=== PATIENT | female | born 1985 | race Caucasian/White ===

== ENCOUNTER 2016-06-13 23:09 | Emergency (ER) | payer OTHER ==
[~2016-06-13] VITALS: Ht 162.6 cm; Wt 65.8 kg
[2016-06-14 01:36] VITALS: BP 122/77
== END 2016-06-14 01:36 | disposition home or self-care (01) ==
LOC: ED 23:09
DX: R07.89 Other chest pain (principal); F41.9 Anxiety disorder, unspecified
CPT/HCPCS: J1885; Q0092

== ENCOUNTER 2017-04-10 00:02 | Emergency (ER) | payer OTHER ==
[2017-04-10 04:03] LABS: BASOPHIL % 0.4 % (0-2); PLATELET COUNT 285 x10^3mcL (130-400); RED CELL DISTRIBUTION WIDTH 13.1 % (11.5-14.5)
[2017-04-10 04:55] LABS: SODIUM SERUM 138 mmol/L (136-145)
[2017-04-10 04:56] LABS: CARBON DIOXIDE 26 mmol/L (21-32); CHLORIDE SERUM 104 mmol/L (98-107); POTASSIUM SERUM 3.7 mmol/L (3.5-5.1)
[2017-04-10 04:58] LABS: CALCIUM 9.3 mg/dL (8.5-10.1); CREATININE SERUM 0.6 mg/dL (0.6-1.0); GFR1 > 60 mL/min
[2017-04-10 05:11] LABS: GLUCOSE SERUM 98 mg/dL (74-106)
[2017-04-10 06:23] VITALS: BP 105/75
== END 2017-04-10 06:23 | disposition home or self-care (01) ==
LOC: ED 00:02
PROVIDERS: Emergency Medicine
DX: M54.5 Low back pain (principal); R10.9 Unspecified abdominal pain
CPT/HCPCS: 36415; J1885

== ENCOUNTER 2017-07-02 11:05 | Emergency (ER) | payer OTHER ==
[~2017-07-02] VITALS: Ht 160 cm; Wt 59.9 kg
[2017-07-02 11:39] LABS: BASOPHIL % 0.6 % (0-2); PLATELET COUNT 299 x10^3mcL (130-400); RED CELL DISTRIBUTION WIDTH 12.8 % (11.5-14.5)
[2017-07-02 12:00] LABS: CALCIUM 8.9 mg/dL (8.5-10.1); CARBON DIOXIDE 28.4 mmol/L (21-32); CHLORIDE SERUM 106 mmol/L (98-107); CREATININE SERUM 0.7 mg/dL (0.6-1.0); GFR1 > 60 mL/min; GLUCOSE SERUM 96 mg/dL (74-106); POTASSIUM SERUM 3.6 mmol/L (3.5-5.1); SODIUM SERUM 140 mmol/L (136-145)
[2017-07-02 12:05] LABS: ALBUMIN 4.1 g/dL (3.4-5.0); ALKALINE PHOSPHATASE 53 U/L (46-116); ALT/SGPT 15 U/L (14-59); AST/SGOT 15 U/L (15-37); BILIRUBIN TOTAL 0.5 mg/dL (0.20-1.00); TOTAL PROTEIN, SERUM 7.5 g/dL (6.4-8.2)
[2017-07-02 12:11] VITALS: BP 131/89
== END 2017-07-02 12:56 | disposition home or self-care (01) ==
LOC: ED 11:05
PROVIDERS: Emergency Medicine
DX: R07.89 Other chest pain (principal); R06.02 Shortness of breath
CPT/HCPCS: 36415; J1885; Q0092

== ENCOUNTER 2017-08-08 17:35 | Emergency (ER) | payer OTHER ==
[~2017-08-08] VITALS: Ht 160 cm; Wt 59.9 kg
[2017-08-08 17:39] VITALS: Ht 160 cm; Wt 59.9 kg
[2017-08-08 19:14] VITALS: BP 118/68
== END 2017-08-08 19:14 | disposition home or self-care (01) ==
LOC: ED 17:35
DX: N83.201 Unspecified ovarian cyst, right side (principal); N39.0 Urinary tract infection, site not specified; Z88.5 Allergy status to narcotic agent
CPT/HCPCS: J1885

== ENCOUNTER 2018-02-16 10:30 | Emergency (ER) | payer OTHER ==
[~2018-02-16] VITALS: Ht 160 cm; Wt 59.0 kg
[2018-02-16 10:31] VITALS: Ht 160 cm; Wt 59.0 kg
[2018-02-16 11:03] LABS: PLATELET COUNT 282 x10^3mcL (130-400); RED CELL DISTRIBUTION WIDTH 13.4 % (11.5-14.5)
[2018-02-16 11:05] LABS: BASOPHIL % 0 % (0-2)
[2018-02-16 11:14] LABS: CARBON DIOXIDE 22.9 mmol/L (21-32); CHLORIDE SERUM 104 mmol/L (98-107); CREATININE SERUM 0.7 mg/dL (0.6-1.0); GFR1 > 60 mL/min; GLUCOSE SERUM 115 mg/dL (74-106); POTASSIUM SERUM 3.4 mmol/L (3.5-5.1); SODIUM SERUM 138 mmol/L (136-145)
[2018-02-16 11:18] LABS: ALKALINE PHOSPHATASE 58 U/L (46-116); ALT/SGPT 27 U/L (14-59); AST/SGOT 14 U/L (15-37); BILIRUBIN TOTAL 0.95 mg/dL (0.20-1.00); LIPASE 87 IU/L (73-393); TOTAL PROTEIN, SERUM 7.7 g/dL (6.4-8.2)
[2018-02-16 12:10] VITALS: BP 99/66
== END 2018-02-16 12:08 | disposition home or self-care (01) ==
LOC: ED 10:30
PROVIDERS: Emergency Medicine
DX: A08.4 Viral intestinal infection, unspecified (principal); G43.909 Migraine, unspecified, not intractable, without status migrainosus; Z88.5 Allergy status to narcotic agent; Z98.890 Other specified postprocedural states
CPT/HCPCS: 36415; J1885; Q0162

== ENCOUNTER 2018-09-11 20:00 | Emergency (ER) | payer OTHER ==
[~2018-09-11] VITALS: Ht 160 cm; Wt 65.3 kg
[2018-09-11 20:15] VITALS: Ht 160 cm; Wt 65.3 kg
[2018-09-11 23:12] VITALS: BP 108/72
== END 2018-09-11 23:12 | disposition home or self-care (01) ==
LOC: ED 20:00
DX: O23.41 Unspecified infection of urinary tract in pregnancy, first trimester (principal); R10.31 Right lower quadrant pain; R42 Dizziness and giddiness; G43.909 Migraine, unspecified, not intractable, without status migrainosus; Z3A.01 Less than 8 weeks gestation of pregnancy; Z88.5 Allergy status to narcotic agent
CPT/HCPCS: 36415

== ENCOUNTER 2018-12-03 11:52 | Emergency (ER) | payer OTHER ==
[~2018-12-03] VITALS: Ht 160 cm; Wt 66.7 kg
[2018-12-03 12:20] VITALS: BP 115/80; Ht 160 cm; Wt 66.7 kg
== END 2018-12-03 14:51 | disposition home or self-care (01) ==
LOC: ED 11:52
DX: O26.892 Other specified pregnancy related conditions, second trimester (principal); R06.02 Shortness of breath; G43.909 Migraine, unspecified, not intractable, without status migrainosus; Z3A.19 19 weeks gestation of pregnancy; Z88.5 Allergy status to narcotic agent; Z98.890 Other specified postprocedural states

== ENCOUNTER 2019-03-20 20:26 | Emergency (ER) | payer OTHER ==
[~2019-03-20] VITALS: Ht 160 cm; Wt 76.4 kg
[2019-03-20 20:36] VITALS: Ht 160 cm; Wt 76.4 kg
[2019-03-20 22:46] LABS: microscopic required? NO
[2019-03-20 23:08] LABS: urine erythrocyte NEGATIVE (NEGATIVE)
[2019-03-21 00:14] VITALS: BP 109/74
== END 2019-03-21 00:14 | disposition short-term general hospital (02) ==
LOC: ED 20:26
PROVIDERS: Emergency Medicine
DX: O26.893 Other specified pregnancy related conditions, third trimester (principal); N89.8 Other specified noninflammatory disorders of vagina; R10.2 Pelvic and perineal pain; G43.909 Migraine, unspecified, not intractable, without status migrainosus; Z3A.34 34 weeks gestation of pregnancy; Z98.890 Other specified postprocedural states; Z88.5 Allergy status to narcotic agent

== ENCOUNTER 2019-11-09 15:33 | Emergency (ER) | payer OTHER ==
[~2019-11-09] VITALS: Ht 160 cm; Wt 69.9 kg
[2019-11-09 15:39] VITALS: BP 121/74; Ht 160 cm; Wt 69.9 kg
== END 2019-11-09 16:30 | disposition home or self-care (01) ==
LOC: ED 15:33
DX: N64.4 Mastodynia (principal); Z88.5 Allergy status to narcotic agent; G43.909 Migraine, unspecified, not intractable, without status migrainosus; Z98.890 Other specified postprocedural states

== ENCOUNTER 2020-04-20 09:56 | Emergency (ER) | payer OTHER ==
[~2020-04-20] VITALS: Ht 160 cm; Wt 69.9 kg
[2020-04-20 10:05] VITALS: Ht 160 cm; Wt 69.9 kg
[2020-04-20 11:26] LABS: microscopic required? NO
[2020-04-20 12:34] LABS: UA SPECIFIC GRAVITY >=1.030 (1.005-1.035); urine erythrocyte NEGATIVE (NEGATIVE)
[2020-04-20 13:04] VITALS: BP 125/81
== END 2020-04-20 13:04 | disposition home or self-care (01) ==
LOC: ED 09:56
PROVIDERS: Emergency Medicine
DX: S39.012A Strain of muscle, fascia and tendon of lower back, initial encounter (principal); G43.909 Migraine, unspecified, not intractable, without status migrainosus; Z98.890 Other specified postprocedural states; Z88.5 Allergy status to narcotic agent; X58.XXXA Exposure to other specified factors, initial encounter; Y93.89 Activity, other specified; Y92.89 Other specified places as the place of occurrence of the external cause; Y99.8 Other external cause status